=== PATIENT | male | born 2000 | race Two or more races ===

== ENCOUNTER 2024-01-31 23:32 | Emergency (ER) | payer SELFPAY ==
[~2024-01-31] VITALS: Ht 180.3 cm; Wt 122.0 kg
[2024-01-31 23:34] VITALS: TEMP 98.4
[2024-02-01] MEDS: ibuprofen tablet 400 MG TABLET PO ONE (01:07)
[2024-02-01] MEDS: LORazepam 1 MG tablet PO ONE (01:08)
[2024-02-01 01:12] LABS: BASOPHILS # (AUTO) 0.1 X10'3 (0-0.2); BASOPHILS % (AUTO) 0.9 % (0-1); EOSINOPHILS # (AUTO) 0.2 X10'3 (0-0.9); EOSINOPHILS % (AUTO) 1.4 % (0-6); HEMATOCRIT 43.7 % (42.0-52.0); HEMOGLOBIN 15.1 g/dl (14.0-17.9); LYMPHOCYTES # (AUTO) 3.8 X10'3 (1.1-4.8); LYMPHOCYTES % (AUTO) 24.7 % (21-51); MEAN CORPUSCULAR HEMOGLOBIN 28.8 PG (27.0-31.0); MEAN CORPUSCULAR HGB CONC 34.5 g/dL (33.0-36.5); MEAN CORPUSCULAR VOLUME 83.5 FL (78-98); MEAN PLATELET VOLUME 7.4 FL (7.4-10.4); MONOCYTES # (AUTO) 1.1 X10'3 (0-0.9); MONOCYTES % (AUTO) 7.1 % (2-12); NEUTROPHILS # (AUTO) 10.1 X10'3 (1.8-7.7); NEUTROPHILS % (AUTO) 65.9 % (42-75); PLATELET COUNT 252 X10'3 (140-440); RED BLOOD COUNT 5.24 X10'6 (4.70-6.10); RED CELL DISTRIBUTION WIDTH 12.7 % (11.5-14.5); WHITE BLOOD COUNT 15.4 X10'3 (4.5-11.0)
[2024-02-01 01:34] LABS: ALBUMIN 3.3 G/DL (3.4-5.0); ANION GAP 10 (8-16); BLOOD UREA NITROGEN 7 MG/DL (7-18); BUN/CREATININE RATIO 7.1 (10.0-20.0); CALCIUM 8.8 MG/DL (8.5-10.1); CHLORIDE 101 MMOL/L (99-107); CREATININE 0.99 MG/DL (0.60-1.10); MAGNESIUM 1.8 MG/DL (1.5-2.4); POTASSIUM 4.4 MMOL/L (3.5-5.1); PRO BRAIN NATRIURETIC PEPTIDE 104 PG/ML (0-125); SODIUM 137 MMOL/L (135-145); TOTAL CARBON DIOXIDE 25.9 MMOL/L (24-32); eCRCL 121 ML/MIN; eGFR > 90 ML/MIN
[2024-02-01 01:57] LABS: GLUCOSE 501 MG/DL (70-104)
[2024-02-01] MEDS: normal saline 1000ML IV soln IVB ONE (02:32)
[2024-02-01] MEDS: insulin Lispro (HumaLOG) vial - multi-dose SQ SCH (02:34)
[2024-02-01 02:47] VITALS: RESP 16
[2024-02-01 05:16] VITALS: BP 110/65; PULSE 68; O2SAT 96
[2024-02-01] MEDS ORDERED: METF-1203 PO (05:19)
[2024-02-01] MEDS ORDERED: IBUP-1984 PO (05:19)
== END 2024-02-01 05:39 | disposition home or self-care (01) ==
LOC: ER 23:33
DX: E13.65 Other specified diabetes mellitus with hyperglycemia (principal); M94.0 Chondrocostal junction syndrome [Tietze]; Z79.1 Long term (current) use of non-steroidal anti-inflammatories (NSAID); Z79.899 Other long term (current) drug therapy
CPT/HCPCS: 36415; 71045; 80048; 82948; 83735; 83880; 84484; 85025; 93005; 96360; 96361; 96372; 99285; J1815; J7030